=== PATIENT | male | born 1985 | race African-American/Black ===

== ENCOUNTER 2023-11-20 08:44 | Emergency (ER) | payer MEDICAID ==
[~2023-11-20] VITALS: Ht 180.3 cm; Wt 115.0 kg
[2023-11-20 08:52] VITALS: O2SAT 100
[2023-11-20] MEDS: HYDROCODONE/ACETAMINOPHEN 5/325MG TABLET PO ONE (10:45)
[2023-11-20] MEDS: KETOROLAC 30MG/ML VIAL IM ONE (10:45)
[2023-11-20] MEDS ORDERED: NAPR-1176 MT (11:35)
[2023-11-20] MEDS ORDERED: CYCL10TA21 MT (11:35)
[2023-11-20 12:09] VITALS: BP 176/111; PULSE 77; RESP 20; TEMP 97.8
== END 2023-11-20 12:11 | disposition home or self-care (01) ==
LOC: ER 08:55
DX: M54.50 Low back pain, unspecified (principal); Z98.890 Other specified postprocedural states
CPT/HCPCS: 99283; 96372; J1885